=== PATIENT | female | born 1965 | race African-American/Black ===

== ENCOUNTER 2017-07-19 20:13 | Emergency (ER) | payer OTHER, MEDICARE, MEDICAID ==
[~2017-07-19] VITALS: Ht 167.6 cm; Wt 77.0 kg
[2017-07-19 20:14] VITALS: BP 140/99
== END 2017-07-19 21:00 | disposition left against medical advice (07) ==
LOC: ER 20:13
DX: Z53.21 Procedure and treatment not carried out due to patient leaving prior to being seen by health care provider (principal)

== ENCOUNTER 2019-05-01 00:38 | Emergency (ER) | payer OTHER, MEDICARE, MEDICAID ==
[~2019-05-01] VITALS: Ht 165.1 cm; Wt 59.0 kg
[2019-05-01 00:45] VITALS: BP 109/78
== END 2019-05-01 05:58 | disposition left against medical advice (07) ==
LOC: ER 00:38
DX: Z53.21 Procedure and treatment not carried out due to patient leaving prior to being seen by health care provider (principal); F17.210 Nicotine dependence, cigarettes, uncomplicated; Z98.890 Other specified postprocedural states

== ENCOUNTER 2020-03-20 23:41 | Emergency (ER) | payer OTHER, MEDICARE, MEDICAID ==
[~2020-03-20] VITALS: Ht 154.9 cm; Wt 62.0 kg
[2020-03-21 04:39] LABS: CHLORIDE 110 mEq/L (98-107)
[2020-03-21 04:42] LABS: ETHANOL BLOOD < 10 mg/dL
[2020-03-21 04:46] LABS: BASOPHILS % 0.4 % (0.0-2.0); EOSINOPHILS % 1.1 % (0.0-5.0); HEMATOCRIT. 33.9 % (36.0-48.0); HEMOGLOBIN. 11.3 g/dL (12.0-16.0); LYMPHOCYTES % 22.4 % (20.0-50.0); MEAN CORPUSCULAR HEMOGLOBIN 32.3 pg (28.0-32.0); MEAN CORPUSCULAR VOLUME 96.5 fL (81.0-99.0); MEAN PLATELET VOLUME 7.4 fl (7.4-10.4); NEUTROPHILS % 66.1 % (40.0-76.0); PLATELET 307 x1000/uL (130-400); RED BLOOD CELL COUNT 3.51 mill/uL (4.2-5.4); RED CELL DISTRIBUTION WIDTH 13.7 % (11.6-14.6)
[2020-03-21 11:58] LABS: CLARITY URINE CLOUDY (CLEAR); COLOR URINE YELLOW (YELLOW); KETONES URINE 1+ (NEGATIVE); LEUKOCYTE ESTERASE URINE 1+ (NEGATIVE); NITRITE URINE POSITIVE (NEGATIVE); OCCULT BLOOD URINE TRACE (NEGATIVE); PH URINE 6.5 (4.5-8.0); PROTEIN URINE NEGATIVE (NEGATIVE); SPECIFIC GRAVITY URINE 1.026 (1.005-1.030)
[2020-03-21 12:38] VITALS: BP 124/78
[2020-03-21 12:39] LABS: *AMPHETAMINES SCREEN URINE PRESUMTIVE POSITIVE (NEGATIVE); *BARBITURATES SCREEN URINE NEGATIVE (NEGATIVE); *BENZODIAZEPINES SCREEN URINE PRESUMTIVE POSITIVE (NEGATIVE); *COCAINE SCREEN URINE PRESUMTIVE POSITIVE (NEGATIVE); METHADONE URINE SCREEN NEGATIVE (NEGATIVE); OPIATES URINE SCREEN NEGATIVE (NEGATIVE)
[2020-03-21 12:40] LABS: CANNABINOID URINE SCREEN PRESUMTIVE POSITIVE (NEGATIVE); PHENCYCLIDINE URINE SCREEN NEGATIVE (NEGATIVE)
== END 2020-03-21 12:56 | disposition home or self-care (01) ==
LOC: ER 23:41
DX: R44.3 Hallucinations, unspecified (principal); F41.9 Anxiety disorder, unspecified; F31.9 Bipolar disorder, unspecified; F15.10 Other stimulant abuse, uncomplicated; F14.10 Cocaine abuse, uncomplicated; F13.10 Sedative, hypnotic or anxiolytic abuse, uncomplicated
CPT/HCPCS: 36415; 80053; 80305; 80307; 80320; 80329; 81003; 81025; 84702; 85025; 87077; 87186; 99283; G0480

== ENCOUNTER 2023-01-30 13:08 | Emergency (ER) | payer MEDICARE, OTHER ==
[~2023-01-30] VITALS: Ht 165.1 cm; Wt 68.0 kg
[2023-01-30 13:14] VITALS: BP 103/50
[2023-01-30 14:35] LABS: BASOPHILS % 0.8 % (0.0-2.0); EOSINOPHILS % 1.8 % (0.0-5.0); HEMATOCRIT. 31.2 % (36.0-48.0); HEMOGLOBIN. 10.5 g/dL (12.0-16.0); LYMPHOCYTES % 39.9 % (20.0-50.0); MEAN CORPUSCULAR HEMOGLOBIN 32.3 pg (28.0-32.0); MEAN CORPUSCULAR VOLUME 96.1 fL (81.0-99.0); MEAN PLATELET VOLUME 6.5 fl (7.4-10.4); MONOCYTES % 4.9 % (2.0-8.0); NEUTROPHILS % 52.6 % (40.0-76.0); PLATELET 398 x1000/uL (130-400); RED BLOOD CELL COUNT 3.25 mill/uL (4.2-5.4); RED CELL DISTRIBUTION WIDTH 13.5 % (11.6-14.6)
[2023-01-30 14:51] LABS: ETHANOL BLOOD 267 mg/dL
[2023-01-30 15:00] LABS: CHLORIDE 112 mEq/L (98-107)
== END 2023-01-30 15:48 | disposition left against medical advice (07) ==
LOC: ER 13:34
DX: F10.129 Alcohol abuse with intoxication, unspecified (principal); F12.10 Cannabis abuse, uncomplicated; Y90.8 Blood alcohol level of 240 mg/100 ml or more
CPT/HCPCS: 36415; 80053; 80307; 80320; 80329; 82140; 85025; 99283; G0480